=== PATIENT | female | born 1970 | race Hispanic/Latino ===

== ENCOUNTER 2024-07-21 14:24 | Emergency (ER) | payer SELFPAY ==
[~2024-07-21] VITALS: Ht 157.5 cm; Wt 76.2 kg
--- NOTE | 2024-07-21 14:40 | EKG ---
[facility] Test Date: 2024-07-21 Test Time: 14:38:05 Pat Name: FANNY MURCIA Department: ED Room: Gender: F [employer]erg[employer] Finisher: [id number] : 1970 Requested By: TALHA LENTZ Order Number: [id number] Reading MD: Eddie Donald Measurements Intervals [place] Rate: 115 P: 48 MI: 152 QRS: 50 QRSD: 69 T: 28 QT: 326 QTc: 452 Interpretive Statements Sinus tachycardia No previous ECG available for comparison Electronically Signed On 07-21-2024 16:58:44 CDT by Eddie Donald Please click the below link to view image of tracing.
[2024-07-21 14:58] LABS: BASOPHILS # (AUTO) 0.02 K/uL (0.00-0.20); BASOPHILS % (AUTO) 0.3 % (0.0-5.0); EOSINOPHILS # (AUTO) 0.07 K/uL (0.00-0.70); EOSINOPHILS % (AUTO) 1.1 % (0.0-8.0); HEMATOCRIT 42.6 % (36-48); IMMATURE GRANULOCYTE ABSOLUTE 0.02 K/uL (0-1); LYMPHOCYTES # (AUTO) 1.3 K/uL (1.0-4.8); LYMPHOCYTES % (AUTO) 20.2 % (21.0-51.0); MEAN CORPUSCULAR HGB CONC 34.3 g/dL (32.0-36.0); MEAN CORPUSCULAR VOLUME 87.5 fL (79-99); MONOCYTES # (AUTO) 0.7 K/uL (0.1-1.0); MONOCYTES % (AUTO) 10.5 % (3.0-13.0); NEUTROPHILS # (AUTO) 4.3 K/uL (1.8-7.7); NEUTROPHILS % (AUTO) 67.6 % (40.0-77.0); PLATELET COUNT (AUTO) 271 K/uL (130-400); RED BLOOD CELL COUNT(AUTO) 4.87 MIL/uL (4.00-5.50); RED CELL DISTRIBUTION WIDTH 12.9 % (11.0-15.5); WHITE BLOOD COUNT (AUTO) 6.4 K/uL (4.8-10.8)
[2024-07-21 15:05] LABS: POTASSIUM 4.1 mmol/L (3.5-5.1)
--- NOTE | 2024-07-21 15:17 | HMCIMG ---
CHEST 1VW HISTORY: Chest pain COMPARISON: None FINDINGS: A frontal projection of the chest was obtained. No acute pulmonary infiltrates is seen. The heart is normal in size. Mild degenerative changes are seen. No evidence of aortic calcification is seen. IMPRESSION: 1. No acute pulmonary infiltrate is seen.
--- NOTE | 2024-07-21 15:22 | ERN ---
General Chief Complaint: Back Pain-No Injury Stated Complaint: BACK PAIN Time Seen by MD: 14:24 Source: patient History of Present Illness Initial Comments Patient is a 54-year-old female coming in to be evaluated for cough and congestion. Patient states the symptoms began three days ago. She also states that when she coughs she gets chest pain and back pain. Allergies: Coded Allergies: No Known Drug Allergies (Unverified Allergy, Unknown, 07/21/24) Past Medical History Past Medical History: Diabetes-Type II Past Surgical History: Cholecystectomy, Surgical History Other: UMBILICAL HERNIA REPAIR ROS Dictation CONSTITUTIONAL: No chills, no fever, no weakness, no diaphoresis, no malaise. HEAD/FACE: No signs of trauma. EENT: No eye pain, no blurred vision, no tearing, no double vision, no ear pain, no ear discharge, no nose pain, no nasal congestion, no throat pain, no throat swelling, no mouth pain. RESPIRATORY: No cough, no orthopnea, no SOB, no stridor, no wheezing. CARDIOVASCULAR: No chest pain, no edema, no palpitations, no syncope. GASTROINTESTINAL/ABDOMINAL: No abdominal pain, no constipation, no diarrhea, no nausea, no vomiting. GENITOURINARY: No abnormal discharge, no dysuria, no frequent urination, no hematuria. No complaints of pain in the genitals. MUSCULOSKELETAL: No back pain, no gout, no joint pain, no joint swelling, no muscle pain, no muscle stiffness, no neck pain. INTEGUMENTARY: No change in color, no change in hair/nails, no dryness, no lesion, no lumps, no rash. NEUROLOGICAL/PSYCH: No anxiety, not depressed, no emotional problem, no headache, no numbness, no pre-existing deficit, no history of seizures, no tremors, no weakness. HEMATOLOGIC/LYMPHATIC: Not anemic, no history of blood clots, no apparent bleed ing, no bruising, glands not swollen. All Systems Negative, Except as Noted. Physical Exam Physical Exam Dictation VITAL SIGNS: Reviewed. GENERAL APPEARANCE: Alert, oriented x3, no acute distress, obese. HEAD AND FACE: Non-traumatic. EYES: PERRL, pink conjunctivas, eyelid no trauma, anterior chamber clear. EARS: Pinnas intact and no signs of trauma or erythema. Ear canals clear and no discharge. TMs no erythema. NOSE: No discharge, no bleeding. OROPHARYNX: Mouth normal, teeth no caries, tongue pink. Pharynx clear, no erythema. Tonsils no exudates, no abscesses noted. Mucous membrane moist. NECK: Supple, non-tender, no thyromegaly, no masses, no JVD, no bruits. BREAST: Deferred. CHEST: No tenderness, no crepitus, no paradoxical movement, no retractions. LUNGS: Clear, well-ventilated, symmetric, no rales, no wheezing, no rhonchi, no stridor, good breath sounds bilaterally. HEART: Regular rate, regular rhythm, no murmur, no gallops. VASCULAR: No peripheral edema. ABDOMEN: Soft, positive bowel sounds, nondistended, no guarding, nontender, no rebound, no masses no hepatomegaly, no splenomegaly, no Yao's sign, no hernias. RECTAL: Deferred. GENITAL: Deferred. NEUROLOGICAL: Normal speech, gross motor function intact, gross sensory function intact. MUSCULOSKELETAL: Neck nontender, full range of motion, back nontender, full range of motion. EXTREMITIES: Nontender, full range of motion. SKIN: Color pink, dry, no turgor, no rash, no lacerations, no abrasions, no contusions. LYMPHATICS: Deferred. Results Laboratory and Microbiology Lab and Micro Result Laboratory Tests Test 07/21/24 14:52 07/21/24 15:19 White Blood Count 6.4 K/uL (4.8-10.8) Red Blood Count 4.87 MIL/uL (4.00-5.50) Hemoglobin 14.6 g/dL (12.0-16.0) Hematocrit 42.6 % (36-48) Mean Corpuscular Volume 87.5 fL (79-99) Mean Corpuscular Hemoglobin 30.0 pg (27.0-33.0) Mean Corpuscular Hemoglobin Concent 34.3 g/dL (32.0-36.0) Red Cell Distribution Width 12.9 % (11.0-15.5) Platelet Count 271 K/uL (130-400) Mean Platelet Volume 10.0 fL (7.5-10.5) Immature Granulocyte % (Auto) 0.3 % (0-1) Neutrophils (%) (Auto) 67.6 % (40.0-77.0) Lymphocytes (%) (Auto) 20.2 % (21.0-51.0) L Monocytes (%) (Auto) 10.5 % (3.0-13.0) Eosinophils (%) (Auto) 1.1 % (0.0-8.0) Basophils (%) (Auto) 0.3 % (0.0-5.0) Neutrophils # (Auto) 4.3 K/uL (1.8-7.7) Lymphocytes # (Auto) 1.3 K/uL (1.0-4.8) Monocytes # (Auto) 0.7 K/uL (0.1-1.0) Eosinophils # (Auto) 0.07 K/uL (0.00-0.70) Basophils # (Auto) 0.02 K/uL (0.00-0.20) Absolute Immature Granulocyte (auto 0.02 K/uL (0-1) Nucleated Red Blood Cells 0.0 % (0.0-0.19) Sodium Level 136 mmol/L (136-145) Potassium Level 4.1 mmol/L (3.5-5.1) Chloride Level 100 mmol/L (101-111) L Carbon Dioxide Level 25 mmol/L (21-32) Blood Urea Nitrogen 12 mg/dL (7-18) Creatinine 1.0 mg/dL (0.5-1.0) Glomerular Filtration Rate Calc 68 mL/min (>90) Random Glucose 362 mg/dL (70-105) H Total Calcium 9.4 mg/dL (8.5-10.1) Troponin I High Sensitivity < 4 ng/L (4-50) L Influenza Type A Antigen Negative For Type A Influenza Type B Antigen Negative For Type B SARS-CoV-2, RNA, NAAT NEGATIVE SARS CoV-2 Group A Streptococcus Rapid negative (NEGATIVE) Labs Reviewed?: Yes EKG/XRAY/US/CT/MRI EKG Comment 07/21/2024 time 2:38 p.m. Ventricular rate 115 Sinus tachycardia [place] [address] wave elevation patient X-RAY Comment IMAGING REPORT Signed PATIENT: FANNY BARBOUR MR#: [id number] 54 : 1970 SEX: F AGE: 54 LOCATION: [facility] ORDER 34 STATUS: REG ER REPORT#: [id number] SERVICE 32 REASON: cp ORDERING PHYSICIAN: TALHA LENTZ MD PROCEDURE: CXR1VW - CHEST 1VW CHEST 1VW HISTORY: Chest pain COMPARISON: None FINDINGS: A frontal projection of the chest was obtained. No acute pulmonary infiltrates is seen. The heart is normal in size. Mild degenerative changes are seen. No evidence of aortic calcification is seen. IMPRESSION: 1. No acute pulmonary infiltrate is seen. DICTATED BY: DYLAN ROD MD DATE: 07/21/241512 ELECTRONICALLY SIGNED BY: DYLAN ROD MD DATE: 07/21/241516 [facility] MDM: Differential diagnosis: Strep pharyngitis, URI, Rationale: Tests considered and ordered secondary to shared decision making include: Previous outside records reviewed: Old ER visits. Risk of complication and/or morbidity or mortality of patient management: None Patient is a 54-year-old female coming in to be evaluated for cough and sore throat. Physical exam oropharyngeal erythema pustular lesions. On physical exam also noted is wheezing on bilateral lung tristan mildly. Patient received nebulized treatment as well as antibiotics. ED Course Orders Procedure Category Date Status Time Cbc With Differential LAB 07/21/24 Complete 14:33 Chest 1vw RAD 07/21/24 Resulted 14:33 12 Lead Ekg Tracing- EKG 07/21/24 Complete Technical 14:33 Troponin I High LAB 07/21/24 Complete Sensitivity 14:33 Urinalysis Profile LAB 07/21/24 Logged 14:33 Basic Metabolic Panel LAB 07/21/24 Complete 14:33 Covid Rna Naat LAB 07/21/24 Complete 14:33 Influenza Type A & B, LAB 07/21/24 Complete Rapid 14:33 Rapid (Group A Strep) LAB 07/21/24 Complete 14:33 Vital Signs Date Time Temp Pulse Resp B/P (MAP) Pulse Ox O2 Delivery O2 Flow Rate FiO2 07/21/24 14:26 99.3 120 18 158/98 96 Room Air DX & DISP Disposition: Discharge Departure Impression: Primary Impression: Strep pharyngitis Additional Impression: URI (upper respiratory infection) Condition: Stable Additional Instructions: FOLLOW-UP WITH PRIMARY CARE PROVIDER IN 1 TO 2 DAYS. TAKE MEDICATIONS DIRECTED HERE IN THE EMERGENCY ROOM. OKAY TO CONTINUE HOME MEDICATIONS UNLESS OTHERWISE DISCUSSED DURING YOUR VISIT IN THE EMERGENCY ROOM TODAY. RETURN TO YOUR NEAREST EMERGENCY ROOM IF SYMPTOMS WORSEN OR IF THERE IS NO IMPROVEMENT. CALL 911 IF YOU NEED IMMEDIATE ASSISTANCE. TAKE TYLENOL [id number] NEEDED AND IF NO CONTRAINDICATIONS ARE PRESENT. INCREASE ORAL HYDRATION. A WOUND CULTURE OR URINE CULTURE WAS ORDERED HERE IN THE EMERGENCY ROOM DEPARTMENT PLEASE FOLLOW-UP WITH PRIMARY CARE PROVIDER AND ADVISE THEM TO GET REPEAT PORTS FROM OUR FACILITY. IF YOU HAD ANY ADRIANE WRAP/SPLINTS THAT WERE APPLIED HERE, PLEASE DO NOT REMOVE THEM UNTIL YOU SEE YOUR PRIMARY CARE OR SPECIALTY. Referrals: Referrals: SELF,REFERRAL (PCP) DARRELL HERMOSILLO MD Time of Disposition: 16:07 TALHA LENTZ MD July 21, 2024 15:22
[2024-07-21 15:39] LABS: RAPID GROUP A STREP negative (NEGATIVE)
[2024-07-21 15:43] LABS: SARS-CoV-2, RNA, NAAT NEGATIVE SARS CoV-2 (NEGATIVE)
[2024-07-21 15:49] LABS: INFLUENZA TYPE A Negative For Type A (NEGATIVE); INFLUENZA TYPE B Negative For Type B (NEGATIVE)
[2024-07-21] MEDS: IpraTROPium/alBUTERol SULFATE 3 ML SOLUTION IH ONE (16:30)
[2024-07-21] MEDS: cefTRIAXone 1G VIAL IVPB ONE (16:31)
[2024-07-21 16:32] VITALS: PULSE 112; RESP 18
[2024-07-21 16:41] VITALS: BP 141/88; PULSE 95; RESP 18; TEMP 99; O2SAT 97
== END 2024-07-21 16:48 | disposition home or self-care (01) ==
LOC: EDH 14:24
DX: J02.0 Streptococcal pharyngitis (principal); E11.9 Type 2 diabetes mellitus without complications; Z20.822 Contact with and (suspected) exposure to COVID-19; Z90.49 Acquired absence of other specified parts of digestive tract; Z98.890 Other specified postprocedural states
CPT/HCPCS: 99285; 96374; 71045; 87635; 84484; 80048; 85025; 87880; 87804 ×2; 36415; 93005; 94640; J0696